=== PATIENT | female | born 1965 | race Caucasian/White ===

== ENCOUNTER 2019-04-17 08:39 | Outpatient (CLI) | payer BC, SELFPAY ==
--- NOTE | 2019-04-17 09:28 | RAD ---
PA AND LATERAL CHEST: HISTORY: Dyspnea. FINDINGS: The heart size is normal. No focal areas of consolidation, pneumothoraces, or pleural effusions are seen. There are mild degenerative changes in the spine. IMPRESSION: No radiographic evidence of acute cardiopulmonary process. POS: [facility]
== END 2019-04-17 08:40 | disposition home or self-care (01) ==
LOC: RAD 08:39
PROVIDERS: ATTEND Internal Medicine Critical Care Medicine
DX: R06.00 Dyspnea, unspecified (principal)
CPT/HCPCS: 71046

== ENCOUNTER 2020-12-11 10:55 | Inpatient (IN) | payer BC ==
[2020-12-11 11:52] LABS: #Monocytes 0.5 thou/uL (0.11-0.59); #Neutrophils 4.8 thou/uL (1.40-6.50); %Eosinophils 0.3 % (0.0-10.0); %Lymphocytes 15.2 % (21.0-51.0); %Monocytes 7.2 % (0.0-10.0); %Neutrophils 77.3 % (42.0-75.0); Hemoglobin 12.4 g/dL (12.0-16.0); Mean Corpuscular HGB CONC 34.3 g/dL (32.0-36.0); Mean Corpuscular Hemoglobin 32.6 pg (27.0-31.0); Mean Corpuscular Volume 95.2 fL (78.0-98.0); Mean Platelet Volume 7.4 fL (7.4-10.4); Platelet Count 282 thou/uL (130-400); RBC Distribution Width 11.5 % (11.5-14.5); White Blood Cell (WBC) Count 6.3 thou/uL (4.8-10.8)
[2020-12-11] MEDS ORDERED: Nitroglycerin 2% Ointment 1 INCH/1 GM Packet ONE (11:53)
[2020-12-11 12:14] LABS: ALT (SGPT) 21 U/L (8-55); AST (SGOT) 23 U/L (5-34); Albumin 4.2 g/dL (3.5-5.0); Alkaline Phosphatase 73 U/L (40-110); Anion Gap 15 mmol/L (10-20); BUN (Urea Nitrogen) 11 mg/dL (9.8-20.1); Bilirubin, Total 0.5 mg/dL (0.2-1.2); Calc. Creatinine Clearance 0 mL/min (70-130); Carbon Dioxide 22 mmol/L (22-29); Chloride 104 mmol/L (98-107); Globulin 2.7 g/dL (2.4-3.5); Glucose 131 mg/dL (70-105); Lipase 17 U/L (8-78); Potassium 3.6 mmol/L (3.5-5.1); Protein, Total 6.9 g/dL (6.0-8.3); Sodium 137 mmol/L (136-145)
[2020-12-11] MEDS ORDERED: Aspirin 325 MG TAB ONE ×2 (12:53→13:03)
[2020-12-11] MEDS ORDERED: Melatonin 3 MG TAB PO PRN (14:46)
[2020-12-11] MEDS ORDERED: Nitroglycerin 0.4 MG TAB (25 Tab Bottle) SL PRN (14:46)
[2020-12-11 16:05] LABS: Troponin I 0.023 ng/mL (< 0.028)
[2020-12-11] MEDS: Acetaminophen 325 MG TAB PO PRN ×2 (16:14→21:36)
[2020-12-11 18:55] LABS: Troponin I 0.014 ng/mL (< 0.028)
[2020-12-11] MEDS: Famotidine 20 MG TAB PO SCH (21:36)
[2020-12-11] MEDS: hydrALAZINE 20 MG/ML VIAL SLOW IVP PRN (21:38)
[2020-12-11] MEDS: Zolpidem Tartrate 5 MG TAB PO PRN (22:37)
[2020-12-11 23:41] LABS: SARS-CoV-2 PCR by NAA Not Detected (NotDetected)
[2020-12-12 05:49] LABS: #Eosinphils 0.1 thou/uL (0.0-0.7); #Lymphocytes 1.4 thou/uL (1.20-3.40); #Monocytes 0.5 thou/uL (0.11-0.59); #Neutrophils 2.8 thou/uL (1.40-6.50); %Basophils 0.9 % (0.0-1.0); %Eosinophils 1.5 % (0.0-10.0); %Lymphocytes 28.6 % (21.0-51.0); %Monocytes 10.8 % (0.0-10.0); %Neutrophils 58.2 % (42.0-75.0); Mean Corpuscular HGB CONC 34.6 g/dL (32.0-36.0); Mean Corpuscular Hemoglobin 32.8 pg (27.0-31.0); Mean Corpuscular Volume 94.8 fL (78.0-98.0); Mean Platelet Volume 7.3 fL (7.4-10.4); Platelet Count 248 thou/uL (130-400); RBC Distribution Width 11.6 % (11.5-14.5); Red Blood Cell (RBC) Count 3.64 mill/uL (4.20-5.40); White Blood Cell (WBC) Count 4.8 thou/uL (4.8-10.8)
[2020-12-12 06:09] LABS: Anion Gap 15 mmol/L (10-20); BUN (Urea Nitrogen) 11 mg/dL (9.8-20.1); Calc. Creatinine Clearance 98 mL/min (70-130); Calcium 9.1 mg/dL (7.8-10.44); Carbon Dioxide 21 mmol/L (22-29); Chloride 104 mmol/L (98-107); Glucose 104 mg/dL (70-105); Potassium 3.5 mmol/L (3.5-5.1); Sodium 136 mmol/L (136-145)
[2020-12-12] MEDS: hydrALAZINE 20 MG/ML VIAL SLOW IVP PRN ×2 (06:11→16:01)
[2020-12-12] MEDS: Aspirin Chewable 81 MG TAB PO SCH (07:58)
[2020-12-12] MEDS: Famotidine 20 MG TAB PO SCH ×2 (07:58→20:28)
[2020-12-12] MEDS: Losartan 25 MG TAB PO SCH (07:59)
[2020-12-12] MEDS: hydrALAZINE 25 MG TAB PO SCH ×2 (07:59→20:28)
[2020-12-12] MEDS: Acetaminophen 325 MG TAB PO PRN (08:03)
[2020-12-12] MEDS: Zolpidem Tartrate 5 MG TAB PO PRN (20:31)
[2020-12-13] MEDS: hydrALAZINE 20 MG/ML VIAL SLOW IVP PRN ×2 (00:40→23:55)
[2020-12-13] MEDS: Famotidine 20 MG TAB PO SCH ×2 (07:54→20:31)
[2020-12-13] MEDS: Aspirin Chewable 81 MG TAB PO SCH (07:54)
[2020-12-13] MEDS: hydrALAZINE 25 MG TAB PO SCH ×3 (07:55→20:31)
[2020-12-13] MEDS: Losartan 25 MG TAB PO SCH (07:55)
[2020-12-13] MEDS ORDERED: hydrALAZINE 25 MG TAB PO SCH (09:00)
[2020-12-13] MEDS ORDERED: Labetalol 100 MG TAB PO SCH (10:45)
[2020-12-13 16:08] VITALS: BMI 36.8
[2020-12-13] MEDS: ALPRAZolam 0.25 MG TAB PO PRN ×2 (16:10→23:55)
[2020-12-13] MEDS: Carvedilol 6.25 MG TAB PO SCH (17:19)
[2020-12-14] MEDS: Aspirin Chewable 81 MG TAB PO SCH (07:46)
[2020-12-14] MEDS: Carvedilol 6.25 MG TAB PO SCH (07:46)
[2020-12-14] MEDS: Famotidine 20 MG TAB PO SCH ×2 (07:46→19:53)
[2020-12-14] MEDS: Losartan 25 MG TAB PO SCH ×2 (07:46→19:54)
[2020-12-14] MEDS: hydrALAZINE 25 MG TAB PO SCH ×3 (07:46→19:53)
[2020-12-14] MEDS ORDERED: Hydrochlorothiazide 25 MG TAB PO SCH (09:30)
[2020-12-14] MEDS: Carvedilol 25 MG TAB PO SCH (16:52)
[2020-12-14] MEDS: hydrALAZINE 20 MG/ML VIAL SLOW IVP PRN (18:22)
[2020-12-14] MEDS ORDERED: Milk Of Magnesia 30 ML UDCUP PO SCH (19:00)
[2020-12-14] MEDS: Hydrochlorothiazide 25 MG TAB PO SCH (19:54)
[2020-12-15] MEDS: ALPRAZolam 0.25 MG TAB PO PRN (04:15)
[2020-12-15] MEDS: Acetaminophen 325 MG TAB PO PRN (04:18)
[2020-12-15] MEDS: Aspirin Chewable 81 MG TAB PO SCH (07:55)
[2020-12-15] MEDS: Famotidine 20 MG TAB PO SCH (07:55)
[2020-12-15] MEDS: hydrALAZINE 25 MG TAB PO SCH ×2 (07:55→14:19)
[2020-12-15] MEDS: Hydrochlorothiazide 25 MG TAB PO SCH (07:55)
[2020-12-15] MEDS: Carvedilol 25 MG TAB PO SCH (07:56)
[2020-12-15] MEDS: Losartan 25 MG TAB PO SCH (07:56)
[2020-12-15] MEDS ORDERED: cloNIDine 0.1 MG TAB PO PRN (08:39)
[2020-12-15] MEDS ORDERED: Amlodipine 5 MG TAB PO SCH (09:00)
[2020-12-15] MEDS ORDERED: NIFEdipine XL 30 MG TAB PO SCH ×2 (09:00→12:00)
[2020-12-15 12:05] VITALS: BP 140/70; TEMP 97.5
== END 2020-12-15 15:49 | disposition home or self-care (01) | DRG 305 ==
LOC: ERS 10:55 → SUATTDRO 10:55 → 2SW 13:28 → OBSVTOIN 12-14 10:42
PROVIDERS: ADMIT Internal Medicine; ATTEND Hospitalist
DX: I16.0 Hypertensive urgency (principal); Q61.3 Polycystic kidney, unspecified; I10 Essential (primary) hypertension; F41.1 Generalized anxiety disorder; Z20.822 Contact with and (suspected) exposure to COVID-19; R00.2 Palpitations
CPT/HCPCS: 36415; 70450; 71045; 78452; 80048; 80053; 83690; 84484; 85025; 87635; 93005; 93017; 96374; 96376; A9500; G0378; J0360; U0003; U0005

== ENCOUNTER 2021-10-28 10:12 | Outpatient (CLI) | payer BC | END 2021-10-28 10:13 | disposition home or self-care (01) | LOC: RAD 10:12 | PROVIDERS: ATTEND Internal Medicine Critical Care Medicine | DX: R06.00 Dyspnea, unspecified (principal) | CPT/HCPCS: 71046 ==

== ENCOUNTER 2023-06-13 09:25 | Outpatient (CLI) | payer BC | END 2023-06-13 09:26 | disposition home or self-care (01) | LOC: RAD 09:25 | PROVIDERS: ATTEND Internal Medicine Critical Care Medicine | DX: R06.00 Dyspnea, unspecified (principal) | CPT/HCPCS: 71046 ==